=== PATIENT | female | born 1980 | race Caucasian/White ===

== ENCOUNTER 2023-09-10 17:38 | Emergency (ER) | payer OTHER, SELFPAY ==
[2023-09-10 17:45] VITALS: BP 112/81; PULSE 97; RESP 16; TEMP 36.8; O2SAT 94; BMI 24.1
--- NOTE | 2023-09-10 17:55 | ED.NAVMDI ---
HPI - Nausea/Vomiting/Diarrhea General Time Seen by Provider: 17:55 Date Seen: 09/10/23 Chief complaint: Nausea/Vomiting Stated complaint: nausea, fatigue Time Seen by Provider: 09/10/23 17:55 Source: patient and RN notes reviewed Mode of arrival: ambulatory Limitations: no limitations History of Present Illness HPI Narrative: Rosalina is a very pleasant 43-year-old female previously healthy nonsmoker who comes to the emergency room for 6 days of GI symptoms along with sore throat. Patient notes that she had the onset of nausea on MondaySeptember 05 and the following day began experiencing a sore throat along with a fever. She did have fever up to 101-102. She was taking Tylenol for that. She began experiencing diarrhea on September 07 and today had the onset of dry heaving and retching with no production. She notes that her throat is still sore and does not appear to be 1 side over the other. She denies a significant cough or runny nose. She has no known ill contacts. She does not smoke. She did have COVID that she describes as fairly severe in the past. She stated that she did not want to go on a ventilator and so she was treated with ivermectin and steroids. Patient denies any blood in her stool. She really has no significant abdominal pain. She denies dysuria hematuria. She did take COVID test at home that have come back negative. Associated nausea: Yes Related Data Home Medications Medication Instructions Recorded Confirmed No Known Home Medications 09/10/23 09/10/23 Allergies Allergy/AdvReac Type Severity Reaction Status Date / Time Penicillins Allergy Unknown Rash Verified 09/10/23 17:44 Review of Systems Status of ROS: Reports: 10 or more systems reviewed and unremarkable except as noted in History and below Const: Reports: fever and fatigue Eyes: Denies: eye discharge ENMT: Reports: throat pain; Denies: neck pain, hoarseness or swelling of lips/tongue Cardio: Denies: chest pain, swelling of feet/ankles or shortness of breath with exertion Resp: Denies: shortness of breath or cough GI: Reports: nausea, vomiting (Retching) and diarrhea; Denies: abdominal pain or blood in stool : Denies: painful urination or urinary frequency Musculo: Denies: back pain, neck pain, extremity pain or extremity swelling Integ/Breast: Denies: rash Neuro: Denies: headache Endo: Reports: fatigue Exam Narrative: Exam Narrative: Patient is alert and oriented. To does not appear toxic but does appear fatigued. Eyes are clear without injection. TMs without erythema or fluid. Oropharynx is with some erythema on the soft palate tonsillar pillars. She does have some mild exudate slightly especially on the left tonsil. She has positive anterior cervical lymphadenopathy. Tonsils and lymph nodes are symmetrical. Heart with a regular rate and rhythm. Lungs are clear in all lung anthony. Abdomen is soft and nontender. Lower extremities without edema. No calf tenderness. Moving all extremities. Const: Vital Signs, click to edit/add: Vital Signs - 24 hr 09/10/23 17:45 Temperature 98.2 F Pulse Rate [Pulse Oximeter] 97 Respiratory Rate 16 Blood Pressure [Ri ght Upper Arm] 112/81 Pulse Oximetry 94 Oxygen Delivery Me thod Room Air Documenting provider has reviewed patient's vital signs: yes Course Course ED Course: Differential diagnosis includes but is not limited to COVID, influenza, RSV, mono, strep pharyngitis, adenovirus or any other virus. Will place IV and give 1 L of normal saline along with Zofran 4 mg. Labs checked to include CBC, comprehensive panel, CRP, urinalysis, mono, COVID/flu/RSV, strep. Reevaluation(s) Reevaluation #1: Patient notes that she is feeling much better. She notes that the Zofran has also made her very relaxed. Vital Signs Vital signs: Initial Vital Signs Temperature 98.2 F 09/10/23 17:45 Temperature Source Temporal Artery Scan 09/10/23 17:45 Pulse Rate 97 09/10/23 17:45 Pulse Rhythm Regular 09/10/23 17:45 Respiratory Rate 16 09/10/23 17:45 Blood Pressure 112/81 09/10/23 17:45 Blood Pressure Mean 91 09/10/23 17:45 Blood Pressure Position Sitting 09/10/23 17:45 Pulse Oximetry 94 09/10/23 17:45 Oxygen Delivery Method Room Air 09/10/23 17:45 Vital Signs Temperature 98.2 F 09/10/23 17:45 Pulse Rate 97 09/10/23 17:45 Respiratory Rate 16 09/10/23 17:45 Blood Pressure 112/81 09/10/23 17:45 Pulse Oximetry 94 09/10/23 17:45 Oxygen Delivery Method Room Air 09/10/23 17:45 Temperature 98.2 F 09/10/23 17:45 Pulse Rate 97 09/10/23 17:45 Respiratory Rate 16 09/10/23 17:45 Blood Pressure 112/81 09/10/23 17:45 Pulse Oximetry 94 09/10/23 17:45 Oxygen Delivery Method Room Air 09/10/23 17:45 Medications Administered Medications: Discontinued Medications Generic Name Dose Route Start Last Admin Trade Name Rizwana PRN Reason Stop Dose Admin Sodium Chloride 1,000 mls @ 1,000 mls/hr 09/10/23 18:18 09/10/23 19:34 0.9 % Sodium Chloride 1000 Ml IV 09/10/23 19:17 Infused .Q1H AVTAR Infusion Ondansetron HCl 4 mg 09/10/23 18:17 09/10/23 18:38 Ondansetron 2 Mg/Ml Inj IVP 09/10/23 18:18 4 mg ONCE ONE Administration MDM - Nausea/Vomiting/Diarrhea MDM Narrative Medical decision making narrative: 1. Pharyngitis-negative for mono and strep at this time. Recommend symptomatic cares to include Tylenol or ibuprofen as needed. If sore throat continues will need to follow up with primary MD. mono here today was negative but we are not yet at 7-10 days of symptoms. Patient's airway is protected in she can swallow without difficulty. 2. Vomiting and diarrhea -vital signs as well as laboratory values were reassuring with a normal white count. Patient did had elevated CRP at 5.9 but no other abnormalities. She has tested negative for influenza and COVID at this time. Zofran seemed to help her significantly in the ED and she did receive 1 L of normal saline. Given this I have sent a prescription to [facility] for Zofran 4 mg ODT p.o. q.8 hours p.r.n. 10. If diarrhea continues for 3-5 more days would suggest stool culture. Patient does not report any antibiotic use, recent travel or the ingestion of uncooked foods. 3. Lung nodularity-appears to be old granulomatous disease on radiological over-read. Patient is a nonsmoker. 4. Disposition-home at this time. Return to the emergency room for worsening symptoms, persistent vomiting. Try to stay as hydrated as possible. She has been using Pedialyte and I encouraged not just water in this endeavor. Seek medical attention for worsening symptoms. Lab Data Attestation: I reviewed the patient's lab results. Labs: Lab Results 09/10/23 09/10/23 Range/Units 17:50 18:30 WBC 6.32 (4.50-11.00) K/uL RBC 4.54 (4.00-5.20) m/uL Hgb 13.5 (12.0-16.0) gm/dL Hct 40.2 (33.0-51.0) % MCV 89 (80-100) fL MCH 30 (26-34) pg MCHC 34 (32-36) gm/dL RDW Coeff of Kallie 12.1 (11.5-15.5) % Plt Count 209 (140-440) K/uL Neut % (Auto) 54.4 (42.0-72.0) % Lymph % (Auto) 32.3 (20-44) % [place] % (Auto) 12.5 H (0.0-11.0) % Eos % (Auto) 0.3 (0.0-7.0) % Baso % (Auto) 0.3 (0.0-3.0) % Neut # (Auto) 3.44 (1.7-7.0) K/uL Lymph # (Auto) 2.04 (0.90-2.90) K/uL [place] # (Auto) 0.80 (0.00-0.90) K/UL Eos # (Auto) 0.02 (0.00-0.50) K/uL Baso # (Auto) 0.02 (0.00-0.30) K/uL Abs Immat Gran (auto) 0.01 (0.00-0.30) K/uL Imm/Tot Granulo (auto) 0.2 % Sodium 137 (135-149) mmol/L Potassium 4.2 (3.6-5.1) mmol/L Chloride 99 (96-114) mmol/L Carbon Dioxide 28 (20-32) mmol/L Anion Gap 10 (7-15) mEq/L BUN 14 (5-24) mg/dL Creatinine 0.6 (0.5-1.5) mg/dL Estimated Creat Clear 97.95 Estimated GFR 113 ml/min Glucose 102 (60-115) mg/dL Calcium 9.0 (8.4-10.6) mg/dL Total Bilirubin 0.5 (0.1-1.5) mg/dL AST 21 (12-35) U/L ALT 17 (4-35) U/L Alkaline Phosphatase 51 (40-150) U/L C-Reactive Protein 5.9 H (0.5-1.0) mg/dL Total Protein 7.6 (6.0-8.3) g/dL Albumin 4.3 (3.3-5.0) g/dL SARS-CoV-2 (PCR) Negative SARS-CoV-2 (Negative) Monoscreen Negative (Negative) Influenza Type A (PCR) Negative PCR FLU A (Negative) Influenza Type B (PCR) Negative PCR FLU B (Negative) RSV (PCR) Negative PCR RSV (Negative) Group A Strep DNA NOT DETECTED (Not Detectd) Imaging Data Chest x-ray: Attestation: I have reviewed the pertinent imaging results. My impression: Left-sided lung nodule otherwise no evidence of pneumonia. Radiologist's impression: Lung volumes are good. Densely calcified granuloma left mid lung. Few smaller calcified granulomas more centrally in both lungs. No focal consolidations. No pulmonary edema. No pleural effusion. No pneumothorax. No pneumomediastinum. Normal cardiomediastinal silhouette. Bones: Normal for age. IMPRESSION: No acute findings. Evidence of healed prior granulomatous disease. Discharge Plan Discharge Clinical Impression: Nausea vomiting and diarrhea Pharyngitis Qualifiers: Pharyngitis/tonsillitis etiology: unspecified etiology Qualified Code(s): J02.9 - Acute pharyngitis, unspecified Patient Disposition: Home, Self-Care Condition: Improved Additional Instructions: At this time if tested negative for strep, mono, RSV, influenza, COVID. Ibuprofen or Tylenol may be used for discomfort. Recommend Zofran as needed for nausea. Please follow-up with your primary clinic if you are not improving. Return to the emergency room for worsening symptoms. Activity Level: No Restrictions Discharge Diet: Regular Prescriptions: No Action No Known Home Medications Follow Up/Referrals: Geovanni Lizarraga MD [Primary Care Provider] - Stand Alone Forms: [employer] Info Instructions
--- NOTE | 2023-09-10 18:17 | CRLHL7_ITS ---
For Patients: As a result of the Cures Act, medical imaging exams and procedure reports are released immediately into your electronic medical record. You may view this report before your referring provider. If you have questions, please contact your health care provider. INDICATION: Nausea, fatigue, fever COMPARISON: None. TECHNIQUE: 1 view chest radiograph. FINDINGS: Lung volumes are good. Densely calcified granuloma left mid lung. Few smaller calcified granulomas more centrally in both lungs. No focal consolidations. No pulmonary edema. No pleural effusion. No pneumothorax. No pneumomediastinum. Normal cardiomediastinal silhouette. Bones: Normal for age. IMPRESSION: No acute findings. Evidence of healed prior granulomatous disease. Dictated by Berkley Kiran MD @ 09/10/2023 7:50:07 PM (Electronically Signed)
[2023-09-10 18:38] LABS: PCR FLU A Negative PCR FLU A (Negative); PCR FLU B Negative PCR FLU B (Negative); PCR RSV Negative PCR RSV (Negative)
[2023-09-10] MEDS: 0.9 % SODIUM CHLORIDE 1000 ml 1,000 ML IV (18:38)
[2023-09-10] MEDS: ONDANSETRON 2 MG/ML inj 4 MG IVP (18:38)
[2023-09-10 18:47] LABS: Basophils Absolute Auto 0.02 K/uL (0.00-0.30); Basophils Percent Auto 0.3 % (0.0-3.0); Eosinophils Absolute Auto 0.02 K/uL (0.00-0.50); Eosinophils Percent Auto 0.3 % (0.0-7.0); Hematocrit 40.2 % (33.0-51.0); Hemoglobin* 13.5 gm/dL (12.0-16.0); Immature Granulocytes Abs Auto 0.01 K/uL (0.00-0.30); Immature Granulocytes Pct Auto 0.2 %; Lymphocytes Absolute Auto 2.04 K/uL (0.90-2.90); Lymphocytes Percent Auto 32.3 % (20-44); Mean Corpuscular HGB Conc 34 gm/dL (32-36); Mean Corpuscular Hemoglobin 30 pg (26-34); Mean Corpuscular Volume 89 fL (80-100); Monocytes Percent Auto 12.5 % (0.0-11.0); Neutrophils Absolute Auto 3.44 K/uL (1.7-7.0); Neutrophils Percent Auto 54.4 % (42.0-72.0); Platelet Count* 209 K/uL (140-440); RDW Coefficient of Variation % 12.1 % (11.5-15.5); Red Blood Count 4.54 m/uL (4.00-5.20); White Blood Count* 6.32 K/uL (4.50-11.00)
[2023-09-10 18:50] LABS: Slide Review Reflex No
[2023-09-10 19:05] LABS: Albumin* 4.3 g/dL (3.3-5.0); Chloride* 99 mmol/L (96-114); Sodium* 137 mmol/L (135-149)
[2023-09-10 19:06] LABS: Potassium* 4.2 mmol/L (3.6-5.1)
[2023-09-10 19:08] LABS: SARS PCR* Negative SARS-CoV-2 (Negative)
[2023-09-10 19:08] LABS: Alanine Aminotransferase* 17 U/L (4-35); Alkaline Phosphatase* 51 U/L (40-150); Anion Gap 10 mEq/L (7-15); Aspartate Amino Transferase* 21 U/L (12-35); Bilirubin Total* 0.5 mg/dL (0.1-1.5); Blood Urea Nitrogen* 14 mg/dL (5-24); Carbon Dioxide* 28 mmol/L (20-32); Creatinine* 0.6 mg/dL (0.5-1.5); Est. Creatinine Clearance* 97.95; Estimated Glomerular Filt Rate 113 ml/min; Total Protein* 7.6 g/dL (6.0-8.3)
[2023-09-10 19:09] LABS: Glucose* 102 mg/dL (60-115); Mono Screen* Negative (Negative)
[2023-09-10 19:11] LABS: C Reactive Protein* 5.9 mg/dL (0.5-1.0)
[2023-09-10 19:35] LABS: Strep A DNA Probe* NOT DETECTED (Not Detectd)
[2023-09-10 20:27] LABS: Appearance Urine Clear (Clear); Bilirubin Urine Negative (Negative); Blood Urine Negative (Negative); Color Urine Yellow (Yellow); Glucose Urine Negative (Negative); Ketones Urine Trace (Negative); Leukocyte Esterase Urine 1+ (Negative); Nitrite Urine Negative (Negative); Protein Urine 1+ (Negative); Specific Gravity Urine 1.015 (1.000-1.030); pH Urine 6.5 (5.0-8.5)
[2023-09-10 20:51] LABS: RBC Urine 0-2 (0-2)
[2023-09-10 20:52] LABS: Bacteria Urine Few; Mucus Urine Moderate
== END 2023-09-10 20:26 | disposition home or self-care (01) ==
PROVIDERS: Emergency Provider Family Medicine; PCP Family Medicine
DX: J02.9 Acute pharyngitis, unspecified (principal); R11.2 Nausea with vomiting, unspecified; R19.7 Diarrhea, unspecified
CPT/HCPCS: 36415; 71045; 80053; 81001; 85025; 86140; 86308; 87086; 87631; 87651; 96374; 99284; J2405; J7030